=== PATIENT | male | born 1990 | race Caucasian/White ===

== ENCOUNTER 2022-04-26 18:15 | Emergency (ER) | payer OTHER, BC ==
[2022-04-26] MEDS: HYDROmorphone 0.5 MG/0.5 ML Syringe IVPUSH ONE ×2 (18:45→19:09)
[2022-04-26 19:15] LABS: CHLORIDE,CL 105 mmol/L (98-107); SODIUM,NA 140 mmol/L (136-145)
[2022-04-26 19:18] LABS: ANION GAP 9.9 mmol/L (5-15); ESTIMATED GFR 104 mL/min (>=60)
== END 2022-04-26 19:50 | disposition home or self-care (01) ==
LOC: VM.ED 18:15
DX: S06.0X1A Concussion with loss of consciousness of 30 minutes or less, initial encounter (principal); S00.83XA Contusion of other part of head, initial encounter; V49.40XA Driver injured in collision with unspecified motor vehicles in traffic accident, initial encounter; Y92.410 Unspecified street and highway as the place of occurrence of the external cause
CPT/HCPCS: 36415; 80053; 85025; 85610; 85730; 86140; 96374; 99285; J1170